=== PATIENT | male | born 1980 | race Caucasian/White ===

== ENCOUNTER 2022-11-22 09:32 | Emergency (ER) | payer BC, SELFPAY ==
[2022-11-22] VITALS (15 sets, daily range): BP systolic 150–175; BP diastolic 86–110; PULSE 66–90; RESP 16–18; TEMP 37.5; O2SAT 96–99; BMI 33.7
[2022-11-22 09:57] LABS: Add Manual Diff / Slide Review NO; Basophils Absolute Auto 0 /uL (0-100); Basophils Percent Auto 0.5 % (0-2); Eosinophils Absolute Auto 100 /uL (0-450); Eosinophils Percent Auto 1.1 % (2-4); Hematocrit 47.9 % (41-53); Hemoglobin 16.9 g/dL (13.5-17.5); Lymphocytes Absolute Auto 1400 /uL (1100-4500); Lymphocytes Percent Auto 19.7 % (25-40); Mean Corpuscular HGB Conc 35.2 % (30-36); Mean Corpuscular Hemoglobin 30.3 PG (26-34); Mean Corpuscular Volume 86.1 fL (80-100); Monocytes Absolute Auto 1100 /uL (0-900); Monocytes Percent Auto 14.9 % (3-14); Neutrophils Absolute Auto 4600 /uL (1500-7000); Neutrophils Percent Auto 63.8 % (50-75); Platelet Count 195 X10^3/uL (150-400); Red Blood Cell Count 5.56 X10^6/uL (4.5-5.9); Red Cell Distribution Width 11.9 % (11.6-14.8); White Blood Cell Count 7.2 X10^3/uL (4.5-11.0)
[2022-11-22] MEDS: SODIUM CHLORIDE 0.9% 1,000 ML 1000 ML IV ×2 (10:03→10:05)
[2022-11-22] MEDS: ONDANSETRON 4 MG/2 ML INJ IV (10:04)
[2022-11-22 10:06] LABS: Alanine Aminotransferase 97 IU/L (<50); Albumin 4.4 g/dL (3.5-5.0); Albumin Globulin Ratio 1.3 (1.0-2.8); Alkaline Phosphatase 79 U/L (38-126); Aspartate Aminotransferase 152 IU/L (17-59); BUN Creatinine Ratio 19.1 (6-22); Bilirubin Total 3.2 mg/dL (0.2-1.3); Blood Urea Nitrogen 18 mg/dL (9-20); Calcium 9.1 mg/dL (8.4-10.2); Carbon Dioxide 25 mmol/L (22-32); Chloride 104 mmol/L (98-107); Estimated Glomerular Filt Rate > 60 mL/min (>60); Globulin 3.4 g/dL (1.7-4.1); Glucose 143 mg/dL (70-100); HEMOLYSIS < 15 (0-50); Lipase 44 U/L (23-300); Potassium 3.9 mmol/L (3.4-5.1); Sodium 137 mmol/L (137-145); Total Protein 7.8 g/dL (6.3-8.2)
--- NOTE | 2022-11-22 10:14 | ED_ITS ---
HPI - Abdominal Pain General Chief Complaint: Abdominal Pain Stated Complaint: severe abd pain Time Seen by Provider: 11/22/22 09:42 Source: patient Mode of arrival: Ambulatory History of Present Illness HPI narrative: 42-year-old male former smoker without chronic medical history complains of diarrhea for the past 3 days and associated lower abdominal pain that started yesterday. He denies any recent travel, exposure to bad food or antibiotic use. He states initially when the diarrhea was heavy he is having upwards of 10 episodes per day but that stopped yesterday. His abdominal pain has worsened over the past 24 hours. It is worse in the lower portions of his abdomen, he denies any radiation of the pain. He states it is worse when he moves and when he eats and seems to improve with rest. He denies any urinary complaint Related Data Previous Rx's Medication Instructions Recorded hydrocodone 5 mg-acetaminophen 325 1 tab PO Q4-6H PRN pain #10 tabs 11/22/22 mg tablet hyoscyamine sulfate 0.125 mg tablet 0.125 mg PO BID-QID PRN dyspepsia 11/22/22 #20 tabs ondansetron 4 mg disintegrating 4 mg PO TID-QID PRN nausea and 11/22/22 tablet vomiting #10 tabs pantoprazole 40 mg tablet,delayed 40 mg PO DAILY #30 tabs 11/22/22 release (Protonix) Allergies Allergy/AdvReac Type Severity Reaction Status Date / Time tramadol Allergy Vomiting Verified 11/22/22 09:41 Review of Systems Review of Systems Narrative: GENERAL: See HPI HEENT: Denies sinus pain, ear pain, sore throat, difficulty swallowing, dizziness. RESPIRATORY: Denies dyspnea, cough, wheezing, hemoptysis, sputum. CARDIOVASCULAR: Denies chest pain, palpitations, orthopnea, edema, GASTROINTESTINAL: See HPI : Denies dysuria, frequency, incontinence, hematuria, urinary retention. MUSCULOSKELETAL: denies weakness, joint pain, or bony pain SKIN: Denies rash, skin lesions, or other NEUROLOGIC: Denies weakness, headache, numbness, change in speech, confusion, seizures, incoordination. PSYCHIATRIC: No concerning psychosocial issues. 12 point review of systems is negative except for those stated above Patient History Social History Smoking Status: Former smoker Smoking Status: Former smoker alcohol intake frequency: holidays/special occasions only Substance Use Type: marijuana Exam Narrative Exam Narrative: GENERAL: [42] year old patient appears stated age. Well-developed patient, in mild distress. HEAD: Atraumatic. Normocephalic. EYES: Pupils equal round and reactive. Extraocular motions intact. No scleral icterus. No injection or drainage. ENT: Nose without bleeding, purulent drainage. Throat without erythema, tonsillar hypertrophy or exudate. Airway patent. NECK: Trachea midline. Non tender CARDIOVASCULAR: Regular rate and rhythm without murmurs, gallops, or rubs. RESPIRATORY: Clear to auscultation. Breath sounds equal bilaterally. No wheezes, rales, or rhonchi. GASTROINTESTINAL: Abdomen soft, mild lower abdominal tenderness to palpation, no right upper quadrant or epigastric pain, nondistended. EXTREMITIES: No edema or joint tenderness. BACK: Nontender without deformity or crepitance. No flank tenderness. NEURO: AOx3. SKIN: No rash or erythema of visible areas Initial Vital Signs Initial Vital Signs: Vital Signs Temperature 99.5 F 11/22/22 09:36 Pulse Rate 85 11/22/22 09:36 Respiratory Rate 18 11/22/22 09:36 Blood Pressure 150/107 H 11/22/22 09:36 Pulse Oximetry 99 11/22/22 09:36 Oxygen Delivery Method Room Air 11/22/22 09:36 Course Orders Ordered: Discontinued Medications Hydromorphone HCl (Hydromorphone 0.5 Mg Inj) 0.5 mg IV NOW ONE Stop: 11/22/22 10:23 Last Admin: 11/22/22 10:52 Dose: 0.5 mg Documented By: LORNA Sodium Chloride (Normal Saline 0.9%) 1,000 mls @ 1,000 mls/hr IV BOLUS ONE Stop: 11/22/22 10:55 Last Infusion: 11/22/22 11:00 Dose: 0 mls/hr Documented By: Admin: 11/22/22 10:03 Dose: 1,000 mls/hr Documented By: LORNA Sodium Chloride (Normal Saline 0.9%) 1,000 mls @ 1,000 mls/hr IV BOLUS ONE Stop: 11/22/22 10:55 Last Infusion: 11/22/22 12:16 Dose: 0 mls/hr Documented By: Admin: 11/22/22 10:05 Dose: 1,000 mls/hr Documented By: LORNA Ondansetron HCl (Ondansetron 4 Mg/2 Ml Inj) 4 mg IV NOW PRN PRN Reason: Nausea And Vomiting Last Admin: 11/22/22 10:04 Dose: 4 mg Documented By: LORNA Vital Signs Vital signs: Vital Signs - 8 hr 11/22/22 09:36 11/22/22 10:30 11/22/22 11:00 Temperature 99.5 F Pulse Rate 85 69 66 Respiratory Rate 18 16 16 Blood Pressure 150/107 H 165/93 H 161/86 H Pulse Oximetry 99 98 98 Oxygen Delivery Method Room Air 11/22/22 11:30 11/22/22 11:44 11/22/22 12:00 Temperature Pulse Rate 71 67 75 Respiratory Rate 16 Blood Pressure Pulse Oximetry 99 98 98 Oxygen Delivery Method 11/22/22 12:10 11/22/22 12:10 11/22/22 12:30 Temperature Pulse Rate 70 69 Respiratory Rate Blood Pressure 172/107 H Pulse Oximetry 98 98 Oxygen Delivery Method 11/22/22 13:00 11/22/22 13:30 11/22/22 14:00 Temperature Pulse Rate 68 69 74 Respiratory Rate Blood Pressure Pulse Oximetry 98 98 99 Oxygen Delivery Method 11/22/22 14:30 11/22/22 14:51 11/22/22 14:51 Temperature Pulse Rate 72 90 Respiratory Rate 16 16 Blood Pressure 172/107 H 157/108 H Pulse Oximetry 98 98 Oxygen Delivery Method 11/22/22 15:00 11/22/22 15:00 Temperature Pulse Rate 68 Respiratory Rate Blood Pressure 162/108 H Pulse Oximetry 98 Oxygen Delivery Method MDM - Abdominal Pain Lab Data 11/22/22 09:50 11/22/22 09:50 Labs: Lab Results 11/22/22 11/22/22 11/22/22 Range/Units 09:44 09:50 09:50 WBC 7.2 (4.5-11.0) X10^3/uL RBC 5.56 (4.5-5.9) X10^6/uL Hgb 16.9 (13.5-17.5) g/dL Hct 47.9 (41-53) % MCV 86.1 (80-100) fL MCH 30.3 (26-34) PG MCHC 35.2 (30-36) % RDW 11.9 (11.6-14.8) % Plt Count 195 (150-400) X10^3/uL Neut % (Auto) 63.8 (50-75) % Lymph % (Auto) 19.7 L (25-40) % Nelson % (Auto) 14.9 H (3-14) % Eos % (Auto) 1.1 L (2-4) % Baso % (Auto) 0.5 (0-2) % Neut # (Auto) 4600 (3628-5122) /uL Lymph # (Auto) 1400 (4637-1025) /uL Nelson # (Auto) 1100 H (0-900) /uL Eos # (Auto) 100 (0-450) /uL Baso # (Auto) 0 (0-100) /uL Sodium 137 (137-145) mmol/L Potassium 3.9 (3.4-5.1) mmol/L Chloride 104 (98-107) mmol/L Carbon Dioxide 25 (22-32) mmol/L BUN 18 (9-20) mg/dL Creatinine 0.94 (0.66-1.25) mg/dL Estimated GFR > 60 (>60) mL/min BUN/Creatinine Ratio 19.1 (6-22) Glucose 143 H (70-100) mg/dL Calcium 9.1 (8.4-10.2) mg/dL Total Bilirubin 3.2 H (0.2-1.3) mg/dL AST 152 H (17-59) IU/L ALT 97 H (<50) IU/L Alkaline Phosphatase 79 (38-126) U/L Total Protein 7.8 (6.3-8.2) g/dL Albumin 4.4 (3.5-5.0) g/dL Globulin 3.4 (1.7-4.1) g/dL Albumin/Globulin Ratio 1.3 (1.0-2.8) Lipase 44 (23-300) U/L Urine Color Yellow Urine Appearance Sl cloudy Urine pH 5.5 (4.5-8.0) Ur Specific Flushing 1.025 (1.000-1.035) Urine Protein Trace H (Negative) Urine Glucose (UA) Negative (Negative) g/dL Urine Ketones Negative (NEGATIVE) Urine Occult Blood Trace-intact (Negative) Urine Nitrate Negative (Negative) Urine Bilirubin Negative (NEGATIVE) Urine Urobilinogen 1.0 (0.2) E.U./dL Ur Leukocyte Esterase Negative (NEGATIVE) Urine RBC 0-1/hpf (0-5/HPF) Urine WBC 0-1/hpf (0-5/HPF) Ur Squamous Epith Cells None seen (0-5/HPF) Calcium Oxalate Crystal Occasional H Amorphous Sediment 3+ Urine Bacteria None seen (None) Ur Culture Indicated? Specimen cultured Point of care testing: Urine Dip Bedside Urine Glucose Negative Bedside Urine Bilirubin + 1 Bedside Urine Ketone +/- 5 Urine Specific Flushing 1.025 Bedside Urine Occult Blood +/- Bedside Urine pH 6.0 Bedside Urine Protein + 30 Bedside Urine Urobilinogen - Negative Bedside Urine Nitrite - Negative Bedside Urine Leukocytes +/- 15 Esterase MDM Narrative Medical decision making narrative: [42] year old patient presents with nausea, multiple episodes of diarrhea and l ower abdominal pain Multiple etiologies for patient's symptoms considered including, but not limited to: [Food-borne illness versus appendicitis versus bowel obstruction versus diverticulitis versus other] Prior Charts reviewed in our EMR Primary Historian: patient Labs reviewed and interpreted by myself: No leukocytosis or left shift, primary electrolytes and renal function within normal limits. Bilirubin elevated at 3.2, AST 152, ALT 97, alk-phos 79, lipase 44 Imaging reviewed: Normal appearance of gallbladder on ultrasound without biliary dilatation. CT of the abdomen pelvis without acute intra-abdominal findings such as bowel obstruction, appendicitis or other. There is note of mildly enlarged mesenteric lymph nodes with a mention that this is a nonspecific finding but a lymphoproliferative process can not definitively be excluded. I did discuss this finding with the patient, stating that this finding is most likely related to the process contributing to his diarrhea which is likely self- limited but that he should follow with his primary care provider to discuss repeat imaging down the line to ensure resolution History and physical exam are reassuring, patient is hemodynamically stable and though found to be hypertensive is free of any symptoms clearly related to a hypertensive urgency or emergency and admits that he is not taken his medications yet today. There is no sign of leukocytosis, no fever. Patient feeling much better after fluids, pain well controlled, he is tolerating orals without difficulty. Multiple diagnoses considered as noted above. Patient kept in the emergency department for quite some time hoping to get a stool sample to send for a GI panel but he was unable to produce a sample. Significance of elevated bilirubin and LFTs is at this point unclear, he has no pain in the epigastrium or right upper quadrant, imaging both in the form of ultrasound and CT do not demonstrate any acute process such as cholecystitis, cholelithiasis, obstructive process, pancreatitis. Possibly acute phase reactants. Patient is feeling much better, pain control, tolerating orals, appropriate for discharge, importance of follow-up relate to patient and clearly understood. Return precautions discussed. Prescription sent to his pharmacy of choice. Encouraged to employed a clear liquid diet for a day or 2 Patient's symptoms improved over duration of stay with above-stated therapies. Findings and discharge diagnosis discussed with patient/family followed by verbalization of understanding Return precautions discussed with patient/family whom verbalize understanding of diagnosis and plan Discharge Plan Departure Patient Disposition: Home Clinical Impression: Diarrhea, Abdominal pain Instructions: DI for Abdominal Pain-Adult Activity Restrictions/Additional Instructions: *You have been diagnosed with [abdominal pain] * As we discussed your history and physical exam as well as labs and imaging are very reassuring. There is no evidence of any severe diagnoses that would require a specific or immediate intervention. *What to do: *Please continue to take your regular medications as directed. [x ] New medication prescriptions sent to your pharmacy: [facility] ] *Please follow up with your primary care provider in 2-3 days, call for an appointment. Let them know you were seen in the Emergency Department and that we ask that you be seen in follow up. We will electronically transmit a record of today's note if your PCP is in our system *Please consider a clear liquid diet for the next 24-48 hours and then slowly advance to regular as tolerated. Also, try to avoid alcohol, nicotine, caffeine, spicy, acidic or fatty foods as this may worsen your symptoms *If you do not have a primary care provider please contact the [facility] Resource line at [phone]. They will ask some questions about your medical history and help get you set up with a doctor in the community. *Return to Emergency Department if you should have any new, worsening or concerning symptoms, such as [fever greater than 101 F, shaking chills, worsening pain, persistent vomiting or other bothersome symptoms] Prescriptions: New hydrocodone-acetaminophen 5-325 mg tablet 1 tab PO Q4-6H PRN (Reason: pain) Qty: 10 0RF pantoprazole [Protonix] 40 mg tablet,delayed release (DR/EC) 40 mg PO DAILY Qty: 30 0RF hyoscyamine sulfate 0.125 mg tablet 0.125 mg PO BID-QID PRN (Reason: dyspepsia) Qty: 20 0RF ondansetron 4 mg tablet,disintegrating 4 mg PO TID-QID PRN (Reason: nausea and vomiting) Qty: 10 0RF Stand Alone Forms: Patient Portal/API
--- NOTE | 2022-11-22 10:22 | DI.CT.S_ITS ---
PROCEDURE: CT ABDOMEN PELVIS W CON INDICATIONS: severe abdominal pain TECHNIQUE: After the administration of intravenous contrast, axial sections acquired from the lung bases to the pubic symphysis. Coronal and sagittal reformats were performed. For radiation dose reduction, the following was used: automated exposure control, adjustment of mA and/or kV according to patient size. COMPARISON: None. FINDINGS: Image quality: Excellent. Lung bases: Mild bibasilar atelectasis. Heart: No significant findings. ABDOMEN: Liver: Unremarkable. Gallbladder: Unremarkable. Biliary ducts: Unremarkable. Pancreas: Unremarkable. Spleen: Unremarkable. Adrenal Glands: Unremarkable. Kidneys and Ureters: Unremarkable. Stomach and Bowel: Stomach, small bowel loops, and colon are unremarkable. Normal appendix. Peritoneum: No abnormal intraperitoneal fluid. No free air. Ventral Wall: No hernias. Abdominal Nodes: Scattered prominent and mildly enlarged mesenteric lymph nodes measuring up to 1.1 cm (2/48). Vessels: Aorta and inferior vena cava are normal in size. PELVIS: Pelvic Organs: Unremarkable. Bladder: Unremarkable. Pelvic Nodes: No enlarged lymph nodes. Miscellaneous: No hernias are seen. Bones: Mild degenerative changes. 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 IMPRESSION: 1. Prominent and mildly enlarged mesenteric lymph nodes. This is nonspecific and may be reactive. A lymphoproliferative process cannot definitively be excluded. Recommend clinical correlation and follow-up. 2. Otherwise, no acute intra-abdominal findings. Normal appendix. Dictated by: Antwon Figueroa M.D. on 11/22/2022 at 11:54 Approved by: Antwon Figueroa M.D. on 11/22/2022 at 12:00
[2022-11-22] MEDS: HYDROMORPHONE 0.5 MG INJ IV (10:52)
[2022-11-22 12:04] LABS: Appearance Urine UA SL CLOUDY; Bilirubin Urine UA NEGATIVE (NEGATIVE); Color Urine UA YELLOW; Glucose Urine UA NEGATIVE (Negative); Ketones Urine UA NEGATIVE (NEGATIVE); Leukocyte Esterase Urine UA NEGATIVE (NEGATIVE); Nitrite Urine UA NEGATIVE (Negative); Occult Blood Urine UA TRACE-INTACT (Negative); Protein Urine UA TRACE (Negative); Specific Gravity Urine UA 1.025 (1.000-1.035); pH Urine UA 5.5 (4.5-8.0)
--- NOTE | 2022-11-22 12:06 | DI.US.S_ITS ---
PROCEDURE: US ABDOMEN LIMITED INDICATIONS: PAIN; ELEVATED BILIRUBIN, LFTS TECHNIQUE: Real-time focused scanning was performed of the abdomen, with image documentation. COMPARISON: [facility], CT, CT ABDOMEN PELVIS W CON, 11/22/2022, 11:24. FINDINGS: The liver is prominent in size and demonstrates no suspicious lesions. No findings of gallstones or sludge are seen. The gallbladder wall is not thickened, measuring 3 mm or less. No specific pericholecystic fluid is seen. The sonographic Aranda sign is negative. There is no biliary dilatation, the common bile duct measures 6 mm. No significant pancreatic abnormality is seen on these images. IMPRESSION: The gallbladder demonstrates a normal sonographic appearance. No biliary dilatation is seen. Enlarged liver, without focal abnormality. Dictated by: Juan Diego Polanco M.D. on 11/22/2022 at 12:53 Approved by: Juan Diego Polanco M.D. on 11/22/2022 at 12:54
[2022-11-22 12:17] LABS: RBC Urine 0-1/HPF (0-5/HPF); WBC Urine 0-1/HPF (0-5/HPF)
[2022-11-22 12:18] LABS: Amorphous Sediment Urine 3+; Bacteria Urine None Seen; Calcium Oxalate Crystals Urine Occasional; Culture Indicated Urine Specimen Cultured; Squamous Epithelial Cell Urine None Seen (0-5/HPF)
== END 2022-11-22 16:58 | disposition home or self-care (01) ==
PROVIDERS: Emergency Provider Emergency Medicine
DX: R10.30 Lower abdominal pain, unspecified (principal); R19.7 Diarrhea, unspecified
CPT/HCPCS: 36415; 74177; 76705; 80053; 81001; 81003; 83690; 85025; 99284; J1170; J2405; Q9967